=== PATIENT | male | born 1960 | race Caucasian/White ===

== ENCOUNTER → 2018-12-30 | Outpatient (CLI) | payer BC ==
[2018-11-01 16:39] VITALS: BP 159/89
[~2018-12-30] MED LIST: APIX5TAB PO; ATOR40TA59 PO; CITA20TA6 PO; METO-239 PO
--- NOTE | 2019-01-01 13:00 | RAD ---
MR#: [id number] Date of Study: 12/30/2018 Ordering Physician: VERNA EASON, Referring Physician: VERNA EASON, Tech: Checo Paul MBA, RDMS, RVT, RDCS, RTR APPROVED REPORT Patient Location: OUT-PATIENT Laterality:Bilateral Indications Bruit Doppler Spectral Velocity Analysis Right Left pCCA 88/19 cm/spCCA 115/26 cm/s mCCA 87/20 cm/smCCA 116/27 cm/s dCCA 91/21 cm/sdCCA 66/23 cm/s Bulb 61/19 cm/sBulb 75/27 cm/s ECA 113/ cm/sECA 110/ cm/s pICA 100/29 cm/spICA 68/20 cm/s Landon 77/27 cm/smICA 89/25 cm/s dICA 96/30 cm/sdICA 75/34 cm/s Vert. 52/ cm/sVert. 66/ cm/s Subcl. 201/ cm/sSubcl. 121/ cm/s ICA/CCA 1.10ICA/CCA 0.77 Findings Grayscale images of the bilateral carotid vessels demonstrate mild plaque at the level of the bifurca tions. Spectral waveforms, color Doppler of the bilateral internal and external carotid vessels demonstrate overall 0 to less than 50% stenosis. Bilateral vertebral velocities are antegrade and no significant subclavian stenosis identified. Normal ICA to CCA ratios bilaterally. Critical Notification Critical Value: No <Conclusion> No significant carotid arterial disease noted bilaterally Signed by : Braxton Brandt, Electronically Approved : 01/01/2019 13:00:02
--- NOTE | 2019-01-01 13:04 | RAD ---
MR#: [id number] Date of Study: 12/30/2018 Ordering Physician: VERNA EASON, Referring Physician: VERNA EASON, Tech: Checo Paul MBA, RDMS, RVT, RDCS, RTR APPROVED REPORT Bilateral Lower Extremity Venous Study for DVT Patient Location: OUT-PATIENT Indications Lower Extremity Edema: Bilateral Vein Imaging (Right) CFV (R): Compressible SFJ (R): Compressible FEM (R): Compressible POP (R): Compressible DFV (R): Compressible PTV (R): Spontaneous GSV (R): Spontaneous Peroneals (R): Spontaneous Vein Imaging (Left) CFV (L): Compressible SFJ (L): Compressible FEM (L): Compressible POP (L): Compressible DFV (L): Compressible PTV (L): Spontaneous GSV (L): Spontaneous Peroneals (L): Spontaneous Doppler Evaluation (Right) CFV (R): Spontaneous POP (R):Spontaneous Doppler Evaluation (Left) CFV (L):Spontaneous POP (L):Spontaneous Findings The bilateral lower extremity deep veins were evaluated for thrombus with color Doppler, spectral and grayscale images. On the right the grayscale images of the common femoral, superficial femoral and popliteal veins do n ot demonstrate any evidence of thrombus and these veins appear to be compressible. The below-knee vei ns were not well visualized but grossly appear to be compressible. Spectral imaging and color Doppler do not reveal any evidence of obstruction to flow with normal respirophasic variation above the knee . Below the knee there is spontaneous flow noted. On the left, the grayscale images of the common femoral, superficial femoral and popliteal veins do n ot demonstrate any evidence of thrombus and these veins appear to be compressible. The below-knee vei ns again were not well visualized but grossly appear to be compressible. Spectral imaging and color D oppler do not reveal any evidence of obstruction to flow with normal respirophasic variation above th e knee. The below-knee veins demonstrate spontaneous flow. Multiple various venous varicosities are noted in the posterior aspect of the right leg. Critical Notification Critical Value: No <Conclusion> 1. Negative for DVT 2. Multiple lower extremity venous varicosities noted Signed by : Braxton Brandt, Electronically Approved : 01/01/2019 13:03:30
== END | disposition home or self-care (01) ==
LOC: US 15:17
PROVIDERS: ATTEND Internal Medicine Cardiovascular Disease
DX: I83.93 Asymptomatic varicose veins of bilateral lower extremities (principal); I65.23 Occlusion and stenosis of bilateral carotid arteries
CPT/HCPCS: 93880; 93970